=== PATIENT | female | born 1985 | race Caucasian/White ===

== ENCOUNTER 2024-08-16 07:11 | Emergency (ER) | payer OTHER, SELFPAY ==
[2024-08-16 07:13] VITALS: BP 154/124
--- NOTE | 2024-08-16 07:35 | ED.GENMED ---
History of Present Illness
General
Chief Complaint: Musculo-Skeletal Complaint
Source: patient
Exam Limitations: none
Time Seen by Provider: 08/16/24 07:17
History of Present Illness
History of Present Illness:
38yoF with a remote history of substance use currently on Suboxone presenting for evaluation of left sided neck pain. Patient had an injury at work on 07/01/24 in which a metal emigdio fell on her L neck/upper back region. She has been having
intermittent pain since that time and has been taking ibuprofen. She has been seen at urgent care and she had an outpatient MRI of her L shoulder last week which showed 'Moderate posterior supraspinatus and anterior infraspinatus tendinosis with low
grade interstitial tearing. No full thickness tear. Trace bursitis. Nondetached tear of the labrum at the 11:00 position.' She was called and advised to follow up with orthopedics but has not made this appointment yet. She woke up this morning
around 5am with worsening pain in her L neck. She also had L sided chest pain this morning which lasted about 20 minutes before resolving. She decided to come to the ED due to her worsening pain. She denies any new trauma. No headache, fevers,
photophobia, visual changes, neck stiffness, shortness of breath.
Past History
Past History
ED Past Medical History: Psychiatric
ED Past Surgical History: None
Social History
Tobacco: Smoker
Alcohol: None
Drug: IVDA (Heroin, currently on Suboxone maintenance)
Personal: Single
Living: with family
Employment: Employed
Family History
Family History: Negative Diabetes
Phy Exam
General Physical Exam
General Presentation: well appearing and no apparent distress
General age: appears stated age
General Skin: warm and dry
General Habitus: normal
General Mental: alert
ENT Exam
ENT Exam: normocephalic and other (+Tenderness along the cervical portion of the L trapezius muscle. No midline spinous process tenderness. No nuchal rigidity. )
Cardiovascular Exam
Cardiovascular Exam: regular rate/rhythm, no murmur and normal peripheral pulses (2+ radial pulses bilaterally)
Pulmonary Exam
Pulmonary Exam: lungs clear, no respiratory distress, no rales, no crackles and no rhonchi
Neurological Exam
Neurological Exam: alert
[place] Coma Scale
Eye Opening: Spontaneous
Verbal Response: Oriented
Motor Response: Obeys Commands
GCS Total Score: 15
Musculoskeletal Exam
Musculoskeletal Exam: other (ROM of L shoulder is normal although pain is elicited with ROM testing)
Skin Exam
Skin Exam: normal color and warm/dry
Psychiatric Exam
Psychiatric Exam: normal mood/affect
Course
Orders/Labs/Results
Orders:
Orders
08/16/24 07:33
Electrocardiogram (*1) Urgent
Reason for Study: Chest Pain
EKG- Treatment ONCE
Acetaminophen [Tylenol] 1,000 mg PO NOW STA
Ketorolac [Toradol] 15 mg IV NOW STA
Test Result ONCE
CR Chest - 2 Views Urgent
Comment:
Reason For Exam: CP
08/16/24 07:34
Lidocaine [Lidocaine 4% Patch] 1 patch TOPICAL ONCE ONE
Apply Lidocaine patch(s) to:: L neck
08/16/24 08:06
Complete Blood Count/With Diff Urgent
Comprehensive Metabolic Panel Urgent
HCG, Serum Qualitative Screen Urgent
Troponin I Urgent
Abnormal Lab Results
08/16/24
08:06
Glucose 113 H mg/dl
(70-99)
08/16/24 08:06
08/16/24 08:06
Vital Signs
Initial and Last Documented VS:
Initial Vital Signs
Temp Pulse Resp BP Pulse Ox
98.0 F 80 18 154/124 100
08/16/24 07:13 08/16/24 07:13 08/16/24 07:13 08/16/24 07:13 08/16/24 07:13
Last Documented Vital Signs
Temp Pulse Resp BP Pulse Ox
98.0 F 71 16 132/76 98
08/16/24 07:13 08/16/24 10:20 08/16/24 10:20 08/16/24 10:20 08/16/24 10:20
MDM/Problems Addressed
Differential Diagnosis Includes:
38yoF here with L sided neck pain. Intermittent since end of June after a metal emigdio fell on her. Woke up today with worsening pain. Had some transient chest pain which has since resolved. Denies headache, photophobia, neck stiffness. She is
hypertensive with otherwise normal vital signs. She is well appearing in no distress. There is reproducible tenderness to the L trapezius muscle on exam. No meningismus noted. Differential diagnosis includes but is not limited to: muscle
strain/spasm, doubt ACS, doubt fracture, no clinical evidence of meningitis
Initial ED plan: Check cardiac labs, EKG, and CXR. IV Toradol, Tylenol, and lidocaine patch for pain.
*EKG
Interpreted by ED Provider?: Yes
EKG Intrepretation Date: 08/16/24
Heart Rate: 72
Rate: normal
Rhythm: sinus
[place]: normal axis
Interval: normal interval
QRS Pattern: normal QRS
Ischemia: no ischemia
*Critical Care Note
Total Time (30-74mins, 75-104mins- exclusive of procedures): Not Applicable
Update Note
Update Note:
EKG shows NSR without ischemic changes and troponin WNL. Remainder of labs unremarkable. CXR is clear without acute findings. Patient feeling improved on reassessment. Suspect muscular pain given clinical presentation. Advised f/u with orthopedics
given her recent abnormal shoulder MRI. ED return precautions discussed. She expressed understanding and is in agreement with plan. She was discharged in stable condition.
ED Attending Note
-
Portions of this chart may have been created with voice recognition software.� Occasional wrong word or��sound alike� substitutions may have occurred due to the inherent limitations of voice recognition software.
Discharge Plan
Departure
Patient Disposition: Home (Routine Discharge)
Date of Disposition: 08/16/24
Time of Disposition: 09:47
Patient with high blood pressure during this ER visit?: Yes
Discharge Problem:
Cervical muscle strain
Instructions: Muscle, joint, and bone pain - Discharge instructions
Prescriptions:
No Action
buprenorphine-naloxone 1 EACH tablet, sublingual
1 ea sublingual DAILY
nicotine 14 MG patch 24 hour
14 mg transdermal DAILY Qty: 0 0RF
levofloxacin 500 MG tablet
500 mg PO DAILY Qty: 8 0RF
Rx Instructions:
start 02/09/15
Referrals:
Kennedy Overton DO [Family Provider] -
Max Rock MD [Active] -
Activity Restrictions/Additional Instructions:
Use lidocaine patches daily (12 hours on, 12 hours off). Take Tylenol and ibuprofen as needed for pain.
Please call today to schedule a follow-up with orthopedics. Return to the ER with any new or worsening symptoms.
Interventions
Interventions:
*Risk Screen - Suicide Last Done: 08/16/24 07:13
*General Assessment Last Done: 08/16/24 07:13
*Neglect/Abuse Screening Last Done: 08/16/24 07:13
ED- Fall Risk Assessment Last Done: 08/16/24 10:20
*ED COVID-19 Vaccine History Last Done: 08/16/24 10:20
*Nursing Disposition Last Done: 08/16/24 10:20
ED-Musculoskeletal Assessment Last Done: 08/16/24 08:32
Discharge Date and Time
Discharge Date/Time: 08/16/24 10:21
Print Language: PALEST[place]IAN
[2024-08-16] MEDS: TORADOL 15 MG IV (08:13)
[2024-08-16] MEDS: LIDOCAINE 4% PATCH 1 PATCH TOPICAL (08:13)
[2024-08-16] MEDS: TYLENOL 1000 MG PO (08:13)
[2024-08-16 08:16] LABS: % Basophils 0.8 % (0-2); % Eosinophils 0.5 % (0-6); % Immature Granulocytes 0.3 % (0-0.5); % Lymphocytes 21.2 % (20.5-51.1); % Monocytes 5.8 % (1.7-9.3); % Neutrophils 71.4 % (42.2-75.2); Absolute Basophils 0.1 10^3/uL (0-0.2); Absolute Lymphocytes 1.6 10^3/uL (1.2-3.4); Absolute Monocytes 0.4 10^3/uL (0.1-0.6); Absolute Neutrophils 5.3 10^3/uL (1.4-6.5); Hematocrit 40.2 % (37.0-47.0); Hemoglobin 13.7 g/dL (12.0-16.0); Mean Corp Hgb Conc. 34.1 g/dL (33.0-37.0); Mean Corpuscular Hgb 29.3 pg (27.0-31.0); Mean Corpuscular Volume 86.1 fL (81.0-99.0); Mean Platelet Volume 8.2 fL (7.4-10.4); Nucleated Red Blood Cells % 0 %; Platelet Count 219 10^3/uL (130-400); Red Blood Cell Count 4.67 10^6/uL (4.20-5.40); Red Cell Dist. Width 12.3 % (11.5-14.5); White Blood Cell Count 7.5 10^3/uL (4.8-10.8)
[2024-08-16 08:27] LABS: HCG, Serum Qualitative Screen Negative
[2024-08-16 08:34] LABS: ALT (SGPT) 13 U/L (0-35); AST (SGOT) 20 U/L (14-36); Albumin 4.5 g/dl (3.5-5.0); Alkaline Phosphatase 62 U/L (38-126); Blood Urea Nitrogen 9 mg/dl (7-17); Calcium 9.3 mg/dl (8.4-10.2); Carbon Dioxide 24 mmol/L (22-30); Chloride 105 mmol/L (98-107); Glucose 113 mg/dl (70-99); Potassium 3.7 mmol/L (3.5-5.1); Sodium 139 mmol/L (135-145); Total Bilirubin 0.8 mg/dl (0.2-1.3); Total Protein 6.8 g/dl (6.3-8.2); eGFR > 60.00
[2024-08-16 08:46] LABS: Troponin I < 0.012 ng/ml
[2024-08-16 10:20] VITALS: BP 132/76
== END 2024-08-16 10:21 | disposition home or self-care (01) ==
LOC: EMR 07:11
PROVIDERS: Physician Assistant; EMERGENCY PHYSICIAN Emergency Medicine; FAMILY PHYSICIAN Internal Medicine
DX: S16.1XXA Strain of muscle, fascia and tendon at neck level, initial encounter (principal); W20.8XXA Other cause of strike by thrown, projected or falling object, initial encounter; Y99.0 Civilian activity done for income or pay; F17.200 Nicotine dependence, unspecified, uncomplicated
CPT/HCPCS: 99285; 96374; 71046; 80053; 84484; 84703; 85025; 93005